=== PATIENT | male | born 1970 | race Caucasian/White ===

== ENCOUNTER 2023-10-16 16:21 | Emergency (ER) | payer OTHER, BC ==
[2023-10-16] MEDS ORDERED: Ibuprofen 800 MG TAB ONE (18:08)
== END 2023-10-16 19:32 | disposition home or self-care (01) ==
LOC: ERS 16:21
DX: S60.521A Blister (nonthermal) of right hand, initial encounter (principal); S10.91XA Abrasion of unspecified part of neck, initial encounter; M54.9 Dorsalgia, unspecified; R04.0 Epistaxis; V43.52XA Car driver injured in collision with other type car in traffic accident, initial encounter
CPT/HCPCS: 70160; 71045